=== PATIENT | female | born 1965 | race Caucasian/White ===

== ENCOUNTER → 2019-11-13 10:09 | Outpatient (CLI) | payer BC, SELFPAY ==
[2019-11-13 11:24] LABS: Basophils # 0.1 K/mm3 (0-0.2); Basophils % 0.6 % (0.1-2.0); Eosinophils # 0.2 K/mm3 (0.0-0.4); Eosinophils % 2.7 % (0.1-12.0); Hematocrit 36.9 % (37.0-47.0); Hemoglobin 12.7 g/dL (12.2-16.2); Lymphocytes # 1.9 K/mm3 (0.7-4.5); Lymphocytes % 24.1 % (10-50); Mean Corpuscular HGB Conc 34.6 g/dL (31.8-35.4); Mean Corpuscular Hemoglobin 30.3 pg (27.0-31.2); Mean Corpuscular Volume 87.6 fl (81-99); Mean Platelet Volume 8.3 fl (7.4-10.4); Monocytes # 0.5 K/mm3 (0.1-1.0); Monocytes % 6.2 % (1.7-9.3); Neutrophils # 5.3 K/mm3 (1.8-7.8); Neutrophils % 66.4 % (37.0-80.0); Platelet Count 221 K/mm3 (142-424); Red Blood Count 4.21 M/mm3 (4.20-5.40); Red Cell Distribution Width 12.9 % (11.5-17.5); White Blood Count 7.9 K/mm3 (4.8-10.8)
[2019-11-13 12:04] LABS: Strep Scrn Group A (Rapid) Negative (Negative)
[2019-11-14 13:28] LABS: Covid-19 Nasal PCR Sendout Lex Not Detected
== END ==
PROVIDERS: PCP Physician Assistant; Visit Provider Physician Assistant
DX: Z03.818 Encounter for observation for suspected exposure to other biological agents ruled out (principal)
CPT/HCPCS: 85025; 87430; U0004

== ENCOUNTER 2020-04-26 16:03 | Emergency (ER) | payer BC, SELFPAY ==
[2020-04-26 16:45] VITALS: BP 135/79; PULSE 69; RESP 18; TEMP 36.9; O2SAT 99; BMI 34.1
--- NOTE | 2020-04-26 17:20 | HMH.EDUTC ---
[facility] [place] Disposition Clinical Impression: Exposure to COVID-19 virus Disposition: Home, Self-Care Condition on Discharge: Good Instructions: DI for COVID-19 (Suspected or Confirmed ), COVID-19: Testing and Tracing, Preventing the Spread of Coronavirus Discharge Instructions Additional Instructions: *Monitor Temp, Over the counter Motrin or Tylenol as directed/as needed Tylenol every 4 hours and Motrin every 6 hours (as long as your family doctor has told you that you can take it) for fever or pain. and straight to ER if unable to lower temp less than 101.0 after medication given Follow up IMMEDIATELY for new or worsening symptoms or no Noticeable improvement over the next 48-72 hours. 911 for difficulty breathing or swallowing You were tested for today for COVID19 your test result should be back in the next 24-48 hours, you may call to the [facility] to see if your test results are back in the next 48 hours [phone] [facility] hours are 9am-9pm You was given a handout with instructions for Self Quarantine and Self isolation for while you wait on test results and what to do if they are positive If you are positive the Health Dept will be contacting you also Referrals: Alivia Chairez MD [Primary Care Provider] - As needed Forms: Work/School Release Time of Disposition: 17:21 Medical Decision Making - Alex Inquiry Pt receiving controlled substance: No Alex was queried for this patient: No Vital Signs: 04/26/20 16:45 Temperature 98.4 F Temperature Source Oral Pulse Rate [Right Brachial] 69 Respiratory Rate 18 Blood Pressure [Right Arm] 135/79 Blood Pressure Mean [Right Arm] 97 Blood Pressure Source [Right Arm] Automatic Cuff Blood Pressure Position [Right Arm] Sitting 02 Sat by Pulse Oximetry 99 Oxygen Delivery Method Room Air Orders (Tests/Meds): ORDERS Category Date Time Status Covid-19 Nasal PCR ([facility]) Routine Lab 04/26/20 16:39 Ordered [facility] [place] HPI - General Stated complaint: covid test Time Seen by Provider: 04/26/20 17:20 Mode of Arrival: Ambulatory Source of Information: Patient Limitations: No Limitations Description of Symptoms (Recalled from Triage Doc. by RN): COVID TEST D/T EXPOSURE; DENIES SYMPTOMS HEENT Symptoms (Recalled from RN notes): No Resp Symptoms (Recalled from RN notes): No Skin Symptoms (Recalled from RN notes): No MS Symptoms (Recalled from RN notes): No Functional Status (Recalled from RN notes): WNL - History of Present Illness Provider Complaint: Patient states that she was recently around someone that tested positive for COVID states that she is not having any symptoms but work wanted her to get tested - Related Data Home Medications Medication Instructions Recorded Confirmed Levothyroxine Sodium [Synthroid 112 mcg PO DAILY 09/01/18 09/01/18 112mcg (0.112mg) tablet] Metoprolol Tartrate [Lopressor 25 mg PO DAILY 09/01/18 09/01/18 25mg tablet] Oxybutynin Chloride [Oxybutynin 10 mg PO DAILY 09/01/18 09/01/18 Chloride ER] diphenhydrAMINE HCL [Allergy 25 mg PO DAILY 09/01/18 09/01/18 Medicine] estradioL [Estradiol] 1 mg PO DAILY 09/01/18 09/01/18 hydroCHLOROthiazide [HCTZ 25mg 12.5 mg PO DAILY 09/01/18 09/01/18 tab] Allergies Allergy/AdvReac Type Severity Reaction Status Date / Time Sulfa (Sulfonamide Allergy Hives Verified 09/01/18 07:09 Antibiotics) - Worker's Comp Is this a Worker's Comp case?: No [facility] History - Hepatitis A Screen Drug use history?: No High risk sexual behaviors?: No History of sexually transmitted infection?: No Currently employed?: No Childcare worker?: No Do you have indoor plumbing?: Yes Do you have electricity?: Yes Attestation statement:: This patient has been screened for Hepatitis A risk factors. I have reviewed the patient's past medical history: Yes Medical History: Reports:: Hypertension, Palpitations Denies:: Diabetes Mellitus Type 1, Diabetes Mellitus Type 2, Internal Pacemaker, Lung Dise
[2020-04-26 17:39] VITALS: BP 135/79; PULSE 69; RESP 18; TEMP 36.9; O2SAT 99
--- NOTE | 2020-04-27 09:57 | PC.NURSE ---
PATIENT NOTIFIED OF POSITIVE COVID RESULTS
== END 2020-04-26 17:40 | disposition home or self-care (01) ==
PROVIDERS: Emergency Provider Emergency Medicine; PCP Family Medicine
DX: U07.1 COVID-19 (principal); I10 Essential (primary) hypertension; R00.2 Palpitations; Z88.2 Allergy status to sulfonamides; Z79.899 Other long term (current) drug therapy
CPT/HCPCS: 99202; G0463; U0003

== ENCOUNTER → 2020-06-14 10:17 | Outpatient (CLI) | payer BC, SELFPAY | PROVIDERS: PCP Family Medicine; Visit Provider Family Medicine | DX: R00.1 Bradycardia, unspecified (principal) | CPT/HCPCS: 93225; 93226 ==

== ENCOUNTER → 2020-11-28 14:29 | Outpatient (CLI) | payer BC, SELFPAY ==
--- NOTE | 2020-11-28 14:35 | MM_ITS ---
PROCEDURE: MM DIG MAMM DX UNILAT LT CAD Digital Breast Tomosynthesis Included CLINICAL INDICATION: ABN MAMM Follow-up abnormal mammogram COMPARISON: MG MAMMO SCREENING DIGITAL TOMOSYNTHESIS BILATERAL W CAD from 07/01/2018 MG MAMMO SCREENING DIGITAL TOMOSYNTHESIS BILATERAL W CAD from 11/14/2020 US US BREAST LT COMPLETE from 11/28/2020 TECHNIQUE: Standard CC and MLO images and 3D Tomosynthesis was obtained. R2 CAD reviewed. FINDINGS: Outside mammograms dating 11/14/2020 and 07/01/2018 are reviewed in conjunction with today's exam. There is average fibroglandular tissue. The outside study mentions asymmetry in the medial aspect of the left breast. Focal spot compression view shows this area to appear to compress out as fibroglandular tissue with no suspicious mass apparent. Rolled views are also performed showing no obvious persistent lesion. Left breast ultrasound: At 10 o'clock there is a complicated cyst or duct at 9 by 8 mm which may account for some of the asymmetry in the medial aspect of the left breast. IMPRESSION: Probably benign findings. Recommend six-month mammographic and sonographic follow-up BI-RAD Category: 3 Probably Benign Finding Short Term Follow-Up FOLLOW-UP: 6M 6 Month Follow-up (A letter has been sent to the patient regarding results of the study.) Dictated by: Justus Arguelles MD 12/09/2020 12:18 Justus Arguelles MD in [place] 12/09/2020 12:18
== END ==
PROVIDERS: PCP Family Medicine; Visit Provider Family Medicine
DX: R92.8 Other abnormal and inconclusive findings on diagnostic imaging of breast (principal)
CPT/HCPCS: 76641; 77061; 77065; G0279

== ENCOUNTER → 2021-06-01 14:34 | Outpatient (CLI) | payer OTHER, SELFPAY ==
--- NOTE | 2021-06-01 14:41 | MM_ITS ---
PROCEDURE INFORMATION: Exam: US Left Breast, Complete MG Left Diagnostic Breast Tomosynthesis Exam date and time: 06/01/2021 2:41 PM Age: 55 years old Clinical indication: Short-term radiographic follow-up for probable cystic change TECHNIQUE: Imaging protocol: Complete ultrasound of all four quadrants of the Left breast and the retroareolar regions, including ultrasound of the axilla when performed. Left Diagnostic tomosynthesis and 2D mammography including computer-aided detection (CAD) when performed. Unilateral or bilateral exam. COMPARISON: 1. MG MM DIG MAMM DX UNILAT LT CAD 11/28/2020 3:06 PM 2. MG MAMMO SCREENING DIGITAL TOMOSYNTHESIS BILATERAL W CAD 11/14/2020 8:47 AM Ultrasound dated 11/28/2020 FINDINGS: MAMMOGRAPHY: The breast tissue is composed of scattered areas of fibroglandular density. There is no stellate mass, architectural distortion or suspicious microcalcifications in either breast to suggest malignancy. No skin thickening or axillary adenopathy. ULTRASOUND: Sonographic images of the left breast including the retroareolar region, all 4 quadrants and the axilla do not demonstrate any solid masses. A cluster of cysts with a combined dimension of 0.9 cm are noted in the left mid 10 o'clock axis. No architectural distortion or acoustical shadowing. No skin thickening or axillary adenopathy. IMPRESSION: No mammographic or sonographic evidence of malignancy. Annual bilateral mammographic screening is recommended in November 2021 unless otherwise clinically indicated. ASSESSMENT: BI-RADS Category 2: Benign
== END ==
PROVIDERS: PCP Family Medicine; Visit Provider Family Medicine
DX: R92.8 Other abnormal and inconclusive findings on diagnostic imaging of breast (principal)
CPT/HCPCS: 76641; 77061; 77065; G0279

== ENCOUNTER → 2021-12-27 10:32 | Outpatient (CLI) | payer OTHER, SELFPAY ==
--- NOTE | 2021-12-27 10:36 | MM_ITS ---
PROCEDURE INFORMATION: Exam: MG Bilateral Screening 3D Mammography Exam date and time: 12/27/2021 10:35 AM Age: 56 years old Clinical indication: Screening mammogram. TECHNIQUE: Imaging protocol: Bilateral Screening tomosynthesis and 2D mammography including computer-aided detection (CAD) when performed. COMPARISON: 1. MG MM DIG MAMM DX UNILAT LT CAD 06/01/2021 2:43 PM 2. MG MM DIG MAMM DX UNILAT LT CAD 11/28/2020 3:06 PM 3. MG MAMMO SCREENING DIGITAL TOMOSYNTHESIS BILATERAL W CAD 11/14/2020 8:47 AM FINDINGS: MAMMOGRAPHY: Breast composition: There are scattered areas of fibroglandular density. Mass: None. Architectural distortion: No new or suspicious architectural distortion. Calcifications: No new or suspicious calcifications are present Asymmetric density: No new or suspicious asymmetric density is present Skin thickening: None. Axillary adenopathy: None. IMPRESSION: No mammographic evidence of malignancy. Recommend annual screening mammography unless otherwise clinically indicated. ASSESSMENT: BI-RADS category 1: Negative
== END ==
PROVIDERS: PCP Family Medicine; Visit Provider Family Medicine
DX: Z12.31 Encounter for screening mammogram for malignant neoplasm of breast (principal)
CPT/HCPCS: 77063; 77067

== ENCOUNTER → 2023-04-16 08:07 | Outpatient (CLI) | payer OTHER, SELFPAY ==
--- NOTE | 2023-04-16 08:11 | MM_ITS ---
PROCEDURE INFORMATION: Exam: MG Bilateral Screening 3D Mammography Exam date and time: 04/16/2023 8:09 AM Age: 57 years old Clinical indication: Screening examination TECHNIQUE: Imaging protocol: Bilateral Screening tomosynthesis and 2D mammography including computer-aided detection (CAD) when performed. COMPARISON: 1. MG MM DIG SCREENING MAMM BI W/CAD 12/27/2021 10:35 AM 2. MG MM DIG MAMM DX UNILAT LT CAD 06/01/2021 2:43 PM FINDINGS: MAMMOGRAPHY: Breast composition: There are scattered areas of fibroglandular density. Mass: None. Architectural distortion: None. Calcifications: No suspicious calcifications. Asymmetric density: None. Skin thickening: None. Axillary adenopathy: None. IMPRESSION: No mammographic evidence of malignancy. Annual screening is recommended unless otherwise clinically indicated. ASSESSMENT: BI-RADS Category 1: Negative
== END ==
PROVIDERS: PCP Family Medicine; Visit Provider Family Medicine
DX: Z12.31 Encounter for screening mammogram for malignant neoplasm of breast (principal)
CPT/HCPCS: 77063; 77067

== ENCOUNTER 2024-08-08 14:25 | Emergency (ER) | payer BC, SELFPAY ==
--- NOTE | 2024-08-08 14:33 | ED_ITS ---
Discharge Plan Disposition Patient Disposition: Home, Self-Care Condition: Good Prescriptions Prescriptions: New cyclobenzaprine 10 mg tablet 10 mg PO BID PRN (Reason: muscle spasm) Qty: 20 0RF No Action methylprednisolone [Medrol (Deshawn)] 4 mg tablets,dose pack See Rx Instructions PO PER PKG DIR Qty: 21 0RF Rx Instructions: PO PER PKG DIR for 6 days benzonatate 100 mg capsule 100 mg PO TID PRN (Reason: cough) Qty: 30 0RF azithromycin 250 mg tablet See Rx Instructions PO .COMPLEX Qty: 6 0RF Rx Instructions: For 250 mg dose pack: take 500 mg today (day 1), then 250 mg for 4 days (days 2-5) PO guaifenesin [Mucinex] 1,200 mg tablet extended release 12hr 1,200 mg PO BID PRN (Reason: congestion) Qty: 10 0RF oxybutynin chloride 10 MG tablet extended release 24hr 10 mg PO DAILY hydrochlorothiazide 25 MG tablet 12.5 mg PO DAILY estradiol 0.5 MG tablet 1 mg PO DAILY levothyroxine 112 MCG tablet 112 mcg PO DAILY metoprolol tartrate 25 MG tablet 25 mg PO DAILY Referrals Follow up/Referrals: Alivia Chairez MD [Primary Care Provider] - See instructions Kunal Gaitan DO [Staff Physician] - See instructions Activity Restrictions/Add. Instructions Additional Instructions/Restrictions: The hospital will call you for the outpatient DVT study. If you continue to have worsening pain or other symptoms occur such as shortness of breath or chest pain please return to the ED immediately. Clinical Impressions Clinical Impression: Calf pain Instructions Patient Instructions: DI for Leg Pain Print Language Print Language: Prydeinig Discharge ED Provider: Lane Estevez General Adult HPI <Birdie Esqueda (ED), CONTROL SYSTEMS DEVELOPER - Last Filed: 08/08/24 16:44> General Chief complaint: Extremity Injury, Lower Stated complaint: AO 1130-R calf muscle injury Time Seen by Provider: 08/08/24 14:32 History of Present Illness HPI narrative: 58-year-old female presents to the ED today after she was walking and felt a pop in her right calf. Patient has been favoring her left leg for a month due to knee pain. Patient denies any recent travel, no reason that she has been sedentary, she is on hormone therapy. Patient denies any illnesses recently. No recent surgeries. Related Data Home Medications ?Medication ?Instructions ?Recorded ?Confirmed estradiol 0.5 mg tablet 1 mg PO DAILY hysterectomy 09/01/18 06/11/24 hydrochlorothiazide 25 mg tablet 12.5 mg PO DAILY bp 09/01/18 06/11/24 levothyroxine 112 mcg tablet 112 mcg PO DAILY hypothyroid 09/01/18 06/11/24 metoprolol tartrate 25 mg tablet 25 mg PO DAILY bp 09/01/18 06/11/24 oxybutynin chloride 10 mg 10 mg PO DAILY bladder 09/01/18 06/11/24 tablet,extended release 24 hr Previous Rx's ?Medication ?Instructions ?Recorded azithromycin 250 mg tablet See Rx Instructions PO .COMPLEX #6 06/11/24 tabs benzonatate 100 mg capsule 100 mg PO TID PRN cough #30 caps 06/11/24 guaifenesin 1,200 mg tablet, 1,200 mg PO BID PRN congestion #10 06/11/24 extended release 12 hr (Mucinex) tabs methylprednisolone 4 mg tablets in See Rx Instructions PO PER PKG DIR 06/11/24 a dose pack (Medrol (Deshawn)) #21 tabs cyclobenzaprine 10 mg tablet 10 mg PO BID PRN muscle spasm #20 08/08/24 tabs Allergies Allergy/AdvReac Type Severity Reaction Status Date / Time Sulfa (Sulfonamide Allergy Hives Verified 06/11/24 13:18 Antibiotics) [facility] <Birdie Esqueda (KAREN), CONTROL SYSTEMS DEVELOPER - Last Filed: 08/08/24 16:44> [facility] Disclaimer: The information contained in this section may have been updated after the patient was seen, as this information can be updated by other users. Medical History (Updated 08/08/24 @ 16:18 by Birdie Esqueda (ED), CONTROL SYSTEMS DEVELOPER) Bronchitis Hypothyroid Hypertension Social History (Updated 06/11/24 @ 13:56 by Gayle Caldera [employer]OL SYSTEMS DEVELOPER) Smoking Status: Never smoker alcohol intake: never current occupational status: other Travel in the last 8 weeks: None caffeine: No Have you lived/traveled outside [place] in past 30 days?: No Contact w/someone who lives/traveled outside US past 30 days?: No Exposure to someone with infectious disease in past 14 days?: No Do you have a fever (greater than 100.4 F or 38 C)?: No Have you tested positive for COVID-19: No Exposed to someone with COVID-19 in past 14 days?: No Do you have a sore throat?: No Do you have a cough?: No Do you have any weakness?: No Do you have any diarrhea?: No Are you experiencing any unusual bleeding?: No Do you have any muscle aches/pain?: No Do you have any abdominal pain?: No Are you experiencing loss of taste or smell?: No <Birdie Esqueda (ED), CONTROL SYSTEMS DEVELOPER - Last Filed: 08/08/24 16:44> ROS Obtained: Yes Systems reviewed as appropriate & no additional complaints except as documented Constitutional Constitutional: Reports as per HPI Physical Exam <Birdiehaylie Esqueda (ED), CONTROL SYSTEMS DEVELOPER - Last Filed: 08/08/24 16:44> General General appearance: alert Head Head exam: atraumatic and normocephalic Eye Eye exam: Present PERRL and EOMI ENT ENT exam: Present normal exam, normal oropharynx and mucous membranes moist Neck Neck exam: Present full ROM and trachea midline Respiratory Respiratory exam: Present normal lung sounds bilaterally Cardiovascular Cardiovascular exam: Present regular rate, normal rhythm, normal heart sounds, +S1 and +S2 Extremities Exam Extremities exam: Present tenderness and calf tenderness (right calf) Neurological Exam Neurological exam: Present alert and oriented X3 Skin Skin exam: Present warm and dry Medical Decision Making <Birdieviraj Esqueda (ED), CONTROL SYSTEMS DEVELOPER - Last Filed: 08/08/24 16:44> Medical Records Screening: Per USPSTF and CDC recommendations, given the prevalence of disease in our region, it is our hospital?s policy to screen for HIV and viral Hepatitis for all patients aged 18 and over and those with ongoing risk factors. Alex Inquiry Pt receiving controlled substance: No Alex was queried for this patient: No Vital Signs: 08/08/24 14:40 08/08/24 15:00 08/08/24 16:21 Temperature 98.5 F 98.5 F Temperature Source Oral Oral Pulse Rate 59 L 58 L Pulse Rate [Left Radial] 55 L Respiratory Rate 20 17 17 Blood Pressure 137/64 128/72 Blood Pressure [Right Arm] 134/55 L Blood Pressure Mean [Right Arm] 81 Blood Pressure Source Automatic Cuff 02 Sat by Pulse Oximetry 97 97 Oxygen Delivery Method Room Air Room Air Room Air 08/08/24 16:35 Temperature 98.2 F Temperature Source Pulse Rate 80 Pulse Rate [Left Radial] Respiratory Rate 20 Blood Pressure 139/70 Blood Pressure [Right Arm] Blood Pressure Mean [Right Arm] Blood Pressure Source 02 Sat by Pulse Oximetry Oxygen Delivery Method Room Air Lab Data Lab results reviewed: Yes I reviewed the patient's lab results. Lab Results 08/08/24 15:19: WBC 9.2, RBC 4.05 L, Hgb 12.3, Hct 36.3 L, MCV 89.6, MCH 30.4, MCHC 33.9, RDW 12.5, Plt Count 239, MPV 11.0 H, Neut % (Auto) 64.9, Lymph % (Auto) 27.0, [place] % (Auto) 6.2, Eos % (Auto) 1.3, Baso % (Auto) 0.3, Neut # (Auto) 6.0, Lymph # (Auto) 2.5, [place] # (Auto) 0.6, Eos # (Auto) 0.1, Baso # (Auto) 0.0, PT 9.6 L, INR 0.84 L, APTT 21.2 L, D-Dimer 0.74 H, Sodium 139, Potassium 3.8, Chloride 106, Carbon Dioxide 27, Anion Gap 9.8, BUN 15, Creatinine 0.80, Estimated Creat Clear 101, Estimated GFR 73, Est GFR ( Amer) 89, Glucose 91, Calcium 8.5, Magnesium 1.6, Total Bilirubin 0.4, AST 28, ALT 14, Alkaline Phosphatase 110, CK-MB (CK-2) 0.8, Total Protein 6.7, Albumin 3.7, Globulin 3.0, Albumin/Globulin Ratio 1.2 08/08/24 15:19 08/08/24 15:19 Orders (Tests/Meds): ED MEDICATIONS Discontinued Medications Generic Name Dose Route Start Last Admin Trade Name Freq PRN Reason Stop Dose Admin Orphenadrine Citrate 60 mg 08/08/24 14:50 08/08/24 15:02 Orphenadrine Citrate 60mg/2ml Vial IM 08/08/24 14:51 60 mg ONCE ONE Administration ORDERS Category Date Time Status POCUS Point of Care (ER Only) Stat Exams 08/08/24 14:36 Completed CBC [Complete Blood Count Auto Diff] Stat Lab 08/08/24 15:19 Completed Comprehensive Metabolic Panel Stat Lab 08/08/24 15:19 Completed Creatine Kinase MB Stat Lab 08/08/24 15:19 Completed D-Dimer Stat Lab 08/08/24 15:19 Completed Magnesium Stat Lab 08/08/24 15:19 Completed PT INR [Prothrombin Time INR] Stat Lab 08/08/24 15:19 Completed PTT [Activated Partial Thrombo Time] Stat Lab 08/08/24 15:19 Completed Medical Decision Narrative: Insert review patient is a 58-year-old female presenting to the emergency department for evaluation of right calf pain. She was walking and heard a pop in her right calf and started having pain. Patient is hemodynamically stable and nontoxic-appearing upon arrival, afebrile. Differential diagnosis includes muscle, DVT. Workup will be conducted with hematologic labs, specific imaging. Initial inventions include pain medication and POCUS by Dr. Coronel. Initial workup reviewed by me is unremarkable and nonactionable. Bedside ultrasound by Dr. Coronel is negative for DVT. We will get a formal DVT study outpatient. The hospital will call patient for an appointment. Patient is so low risk we are not doing anticoagulation. According to the age-adjusted D-dimer she ages out meaning that the DVT is very unlikely. Patient with improved pain after pain meds. Patient will follow-up with primary care provider outpatient with return precautions. <Rufino Coronel MD - Last Filed: 08/09/24 17:14> Vital Signs: 08/08/24 14:40 08/08/24 15:00 08/08/24 16:21 Temperature 98.5 F 98.5 F Temperature Source Oral Oral Pulse Rate 59 L 58 L Pulse Rate [Left Radial] 55 L Respiratory Rate 20 17 17 Blood Pressure 137/64 128/72 Blood Pressure [Right Arm] 134/55 L Blood Pressure Mean [Right Arm] 81 Blood Pressure Source Automatic Cuff 02 Sat by Pulse Oximetry 97 97 Oxygen Delivery Method Room Air Room Air Room Air 08/08/24 16:35 Temperature 98.2 F Temperature Source Pulse Rate 80 Pulse Rate [Left Radial] Respiratory Rate 20 Blood Pressure 139/70 Blood Pressure [Right Arm] Blood Pressure Mean [Right Arm] Blood Pressure Source 02 Sat by Pulse Oximetry Oxygen Delivery Method Room Air Lab Data Lab Results 08/08/24 15:19: WBC 9.2, RBC 4.05 L, Hgb 12.3, Hct 36.3 L, MCV 89.6, MCH 30.4, MCHC 33.9, RDW 12.5, Plt Count 239, MPV 11.0 H, Neut % (Auto) 64.9, Lymph % (Auto) 27.0, [place] % (Auto) 6.2, Eos % (Auto) 1.3, Baso % (Auto) 0.3, Neut # (Auto) 6.0, Lymph # (Auto) 2.5, [place] # (Auto) 0.6, Eos # (Auto) 0.1, Baso # (Auto) 0.0, PT 9.6 L, INR 0.84 L, APTT 21.2 L, D-Dimer 0.74 H, Sodium 139, Potassium 3.8, Chloride 106, Carbon Dioxide 27, Anion Gap 9.8, BUN 15, Creatinine 0.80, Estimated Creat Clear 101, Estimated GFR 73, Est GFR ( Amer) 89, Glucose 91, Calcium 8.5, Magnesium 1.6, Total Bilirubin 0.4, AST 28, ALT 14, Alkaline Phosphatase 110, CK-MB (CK-2) 0.8, Total Protein 6.7, Albumin 3.7, Globulin 3.0, Albumin/Globulin Ratio 1.2 Orders (Tests/Meds): ED MEDICATIONS Discontinued Medications Generic Name Dose Route Start Last Admin Trade Name Freq PRN Reason Stop Dose Admin Orphenadrine Citrate 60 mg 08/08/24 14:50 08/08/24 15:02 Orphenadrine Citrate 60mg/2ml Vial IM 08/08/24 14:51 60 mg ONCE ONE Administration ORDERS Category Date Time Status POCUS Point of Care (ER Only) Stat Exams 08/08/24 14:36 Completed CBC [Complete Blood Count Auto Diff] Stat Lab 08/08/24 15:19 Completed Comprehensive Metabolic Panel Stat Lab 08/08/24 15:19 Completed Creatine Kinase MB Stat Lab 08/08/24 15:19 Completed D-Dimer Stat Lab 08/08/24 15:19 Completed Magnesium Stat Lab 08/08/24 15:19 Completed PT INR [Prothrombin Time INR] Stat Lab 08/08/24 15:19 Completed PTT [Activated Partial Thrombo Time] Stat Lab 08/08/24 15:19 Completed Medical Decision Narrative: Insert review patient is a 58-year-old female presenting to the emergency department for evaluation of right calf pain. She was walking and heard a pop in her right calf and started having pain. Patient is hemodynamically stable and nontoxic-appearing upon arrival, afebrile. Differential diagnosis includes muscle, DVT. Workup will be conducted with hematologic labs, specific imaging. Initial inventions include pain medication and POCUS by Dr. Coronel. Initial workup reviewed by me is unremarkable and nonactionable. Bedside ultrasound by Dr. Coronel is negative for DVT. We will get a formal DVT study outpatient. The hospital will call patient for an appointment. Patient is so low risk we are not doing anticoagulation. According to the age-adjusted D-dimer she ages out meaning that the DVT is very unlikely. Patient with improved pain after pain meds. Patient will follow-up with primary care provider outpatient with return precautions. I was consulted by the JONAS, and we discussed the complexity of the problems being addressed. I approved the treatment and management plan for this patient's care in the emergency department, thus performing a substantive portion of the medical decision making. Patient likely has musculoskeletal calf pain. Clinic ultrasound performed by Dr. Coronel no evidence of DVT. Ultimately feel that patient's is very low risk for DVT and anticoagulation as a bridge we deferred at this time. Patient will be referred for formal outpatient DVT duplex. MD Rufino Allen MD <Lane Estevez MD - Last Filed: 08/08/24 17:05> Vital Signs: 08/08/24 14:40 08/08/24 15:00 08/08/24 16:21 Temperature 98.5 F 98.5 F Temperature Source Oral Oral Pulse Rate 59 L 58 L Pulse Rate [Left Radial] 55 L Respiratory Rate 20 17 17 Blood Pressure 137/64 128/72 Blood Pressure [Right Arm] 134/55 L Blood Pressure Mean [Right Arm] 81 Blood Pressure Source Automatic Cuff 02 Sat by Pulse Oximetry 97 97 Oxygen Delivery Method Room Air Room Air Room Air 08/08/24 16:35 Temperature 98.2 F Temperature Source Pulse Rate 80 Pulse Rate [Left Radial] Respiratory Rate 20 Blood Pressure 139/70 Blood Pressure [Right Arm] Blood Pressure Mean [Right Arm] Blood Pressure Source 02 Sat by Pulse Oximetry Oxygen Delivery Method Room Air Lab Data Lab Results 08/08/24 15:19: WBC 9.2, RBC 4.05 L, Hgb 12.3, Hct 36.3 L, MCV 89.6, MCH 30.4, MCHC 33.9, RDW 12.5, Plt Count 239, MPV 11.0 H, Neut % (Auto) 64.9, Lymph % (Auto) 27.0, [place] % (Auto) 6.2, Eos % (Auto) 1.3, Baso % (Auto) 0.3, Neut # (Auto) 6.0, Lymph # (Auto) 2.5, [place] # (Auto) 0.6, Eos # (Auto) 0.1, Baso # (Auto) 0.0, PT 9.6 L, INR 0.84 L, APTT 21.2 L, D-Dimer 0.74 H, Sodium 139, Potassium 3.8, Chloride 106, Carbon Dioxide 27, Anion Gap 9.8, BUN 15, Creatinine 0.80, Estimated Creat Clear 101, Estimated GFR 73, Est GFR ( Amer) 89, Glucose 91, Calcium 8.5, Magnesium 1.6, Total Bilirubin 0.4, AST 28, ALT 14, Alkaline Phosphatase 110, CK-MB (CK-2) 0.8, Total Protein 6.7, Albumin 3.7, Globulin 3.0, Albumin/Globulin Ratio 1.2 Orders (Tests/Meds): ED MEDICATIONS Discontinued Medications Generic Name Dose Route Start Last Admin Trade Name Freq PRN Reason Stop Dose Admin Orphenadrine Citrate 60 mg 08/08/24 14:50 08/08/24 15:02 Orphenadrine Citrate 60mg/2ml Vial IM 08/08/24 14:51 60 mg ONCE ONE Administration ORDERS Category Date Time Status POCUS Point of Care (ER Only) Stat Exams 08/08/24 14:36 Completed CBC [Complete Blood Count Auto Diff] Stat Lab 08/08/24 15:19 Completed Comprehensive Metabolic Panel Stat Lab 08/08/24 15:19 Completed Creatine Kinase MB Stat Lab 08/08/24 15:19 Completed D-Dimer Stat Lab 08/08/24 15:19 Completed Magnesium Stat Lab 08/08/24 15:19 Completed PT INR [Prothrombin Time INR] Stat Lab 08/08/24 15:19 Completed PTT [Activated Partial Thrombo Time] Stat Lab 08/08/24 15:19 Completed Medical Decision Narrative: Insert review patient is a 58-year-old female presenting to the emergency department for evaluation of right calf pain. She was walking and heard a pop in her right calf and started having pain. Patient is hemodynamically stable and nontoxic-appearing upon arrival, afebrile. Differential diagnosis includes muscle, DVT. Workup will be conducted with hematologic labs, specific imaging. Initial inventions include pain medication and POCUS by Dr. Coronel. Initial workup reviewed by me is unremarkable and nonactionable. Bedside ultrasound by Dr. Coronel is negative for DVT. We will get a formal DVT study outpatient. The hospital will call patient for an appointment. Patient is so low risk we are not doing anticoagulation. According to the age-adjusted D-dimer she ages out meaning that the DVT is very unlikely. Patient with improved pain after pain meds. Patient will follow-up with primary care provider outpatient with return precautions. I was consulted by the JONAS, and we discussed the complexity of the problems being addressed. I approved the treatment and management plan for this patient's care in the emergency department, thus performing a substantive portion of the medical decision making. Patient likely has musculoskeletal calf pain. Clinic ultrasound performed by Dr. Coronel no evidence of DVT. Ultimately feel that patient's is very low risk for DVT and anticoagulation as a bridge we deferred at this time. Patient will be referred for formal outpatient DVT duplex. Lane Estevez MD Procedures <Rufino Coronel MD - Last Filed: 08/09/24 17:14> Limited Ultrasound Indication:: R. calf pain Interpretation:: Indication: Limited compression ultrasonography of the right lower extremity was performed to evaluate for non-compressibility of the deep veins in the patient. The ultrasound was performed with the following indications, as noted in the H&P: Right calf pain Identified structures: Right common femoral vein, femoral vein, popliteal vein were examined. Findings: Lower Extremity: Right CFV: Good compressibility Right FV: Good compressibility Right Popliteal vein: Good compressibility Impression: Normal DVT ultrasound Images were saved to permanent archive The study was technically adequate CPT: 96223-75-CR [id number]-SA 50654-19 (complete bilateral study) This study was performed by me, and I personally interpreted all images/videos. Based on my clinical judgement, these images were adequate/inadequate and did/did not necessitate further imaging. Critical Care <Birdie Esqueda (KAREN), CONTROL SYSTEMS DEVELOPER - Last Filed: 08/08/24 16:44> Critical Care Time Critical Care Time: No
[2024-08-08 14:40] VITALS: BP 134/55; PULSE 55; RESP 20; TEMP 36.9; O2SAT 97; BMI 33.1
[2024-08-08 15:00] VITALS: BP 137/64; PULSE 59; RESP 17; O2SAT 97
[2024-08-08] MEDS: ORPHENADRINE CITRATE 60MG/2ML VIAL 60 MG IM (15:02)
[2024-08-08 15:32] LABS: Basophils % 0.3 % (0.1-2.0); Eosinophils # 0.1 Kmm3 (0.0-0.4); Eosinophils % 1.3 % (0.1-12.0); Hematocrit 36.3 % (37.0-47.0); Hemoglobin 12.3 g/dL (12.2-16.2); Lymphocytes # 2.5 K/mm3 (0.7-4.5); Mean Corpuscular HGB Conc 33.9 g/dL (31.8-35.4); Mean Corpuscular Hemoglobin 30.4 pg (27.0-31.2); Mean Corpuscular Volume 89.6 fl (81-99); Monocytes # 0.6 K/mm3 (0.1-1.0); Monocytes % 6.2 % (1.7-9.3); Neutrophils % 64.9 % (37.0-80.0); Nucleated Red Blood Cells # 0 10^3/uL; Nucleated Red Blood Cells % 0 %; Platelet Count 239 K/mm3 (142-424); Red Blood Count 4.05 M/mm3 (4.20-5.40); Red Cell Distribution Width 12.5 % (11.5-17.5); Red Cell Distribution Width-SD 41.2 fL; White Blood Count 9.2 K/mm3 (4.8-10.8)
[2024-08-08 15:36] LABS: Albumin Level 3.7 g/dl (3.5-5.0); Chloride 106 mmol/L (98-107); Potassium 3.8 mmoL/L (3.5-5.1); Sodium 139 mmol/L (136-145)
[2024-08-08 15:39] LABS: Alanine Aminotransferase 14 U/L (12-78); Albumin/Globulin Ratio 1.2 (1.1-1.8); Alkaline Phosphatase 110 U/L (38-126); Anion Gap 9.8 mEq/L (5-15); Aspartate Amino Transferase 28 U/L (14-36); Bilirubin,Total 0.4 mg/dl (0.2-1.3); Blood Urea Nitrogen 15 mg/dl (7-17); Carbon Dioxide 27 mmol/L (22.0-30.0); Creatinine Clearance Estimated 101 mL/min (50-200); Estimated Glomerular Filt Rate 73 ml/min (>60); GFR (African American) 89 ML/MIN (>60); Total Protein,Serum 6.7 g/dl (6.3-8.2)
[2024-08-08 15:40] LABS: Calcium 8.5 mg/dl (8.4-10.2); Glucose 91 mg/dl (74-100); Magnesium 1.6 mg/dl (1.6-2.3)
[2024-08-08 15:48] LABS: Creatine Kinase MB 0.8 ng/ml (0.0-2.03)
[2024-08-08 15:55] LABS: Activated Partial Thrombo Time 21.2 seconds (22.8-30.6); D-Dimer 0.74 ug/mL (0.0-0.5); INR 0.84 (0.9-1.1); Prothrombin Time 9.6 seconds (10.1-12.5)
[2024-08-08 16:21] VITALS: BP 128/72; PULSE 58; RESP 17; TEMP 36.9; O2SAT 96
[2024-08-08 16:35] VITALS: BP 139/70; PULSE 80; RESP 20; TEMP 36.8; O2SAT 96
== END 2024-08-08 16:35 | disposition home or self-care (01) ==
PROVIDERS: Nurse Practitioner; Emergency Provider Emergency Medicine; PCP Family Medicine
DX: M79.661 Pain in right lower leg (principal)
CPT/HCPCS: 80053; 82553; 83735; 85025; 85378; 85610; 85730; 96372; 99284; J2360

== ENCOUNTER 2024-08-10 13:43 | Outpatient (CLI) | payer BC, SELFPAY ==
--- NOTE | 2024-08-10 | CA_ITS ---
FINAL REPORT TECHNIQUE: Multiple transverse and longitudinal images were performed of the right femoral-popliteal deep venous system with augmentation and compression maneuvers. CLINICAL HISTORY: Right calf pain. She was at work Saturday08/08/24 when she heard a pop in her right calf. States she was just walking, no trauma. She is having trouble walking since this incident. HTN, on HRT for many years. FINDINGS: Right lower extremity duplex ultrasound demonstrates normal flow in the deep venous system. There is no abnormal echogenicity to suggest thrombus. There is normal compression and augmentation. IMPRESSION: No evidence of right DVT. Reviewed, Interpreted and Dictated by Mary Salinas MD Transcribed by Blanca Ventura Authenticated and . [facility]
== END 2024-08-10 23:59 | disposition home or self-care (01) ==
LOC: RT 13:44
PROVIDERS: PCP Family Medicine; Visit Provider Nurse Practitioner
DX: M79.661 Pain in right lower leg (principal)
CPT/HCPCS: 93971

== ENCOUNTER 2024-08-17 08:08 | Outpatient (CLI) | payer BC, SELFPAY ==
--- NOTE | 2024-08-17 08:32 | MM_ITS ---
PROCEDURE INFORMATION: Exam: MG Bilateral Screening 3D Mammography Exam date and time: 08/17/2024 8:32 AM Age: 58 years old Clinical indication: Screening. No family history of breast cancer. TECHNIQUE: Imaging protocol: Bilateral Screening tomosynthesis and 2D mammography including computer-aided detection (CAD) when performed. COMPARISON: 1. MG MM DIG SCREENING MAMM BI W/CAD 04/16/2023 8:09 AM 2. MG MM DIG SCREENING MAMM BI W/CAD 12/27/2021 10:35 AM 3. MG MM DIG MAMM DX UNILAT LT CAD 06/01/2021 2:43 PM 4. MG MM DIG MAMM DX UNILAT LT CAD 11/28/2020 3:06 PM FINDINGS: MAMMOGRAPHY: Breast composition: There are scattered areas of fibroglandular density. Mass: None. Architectural distortion: None. Calcifications: No suspicious calcifications. Asymmetric density: No developing asymmetry. Skin thickening: None. Axillary adenopathy: None. IMPRESSION: No mammographic evidence of malignancy. Annual screening is recommended unless otherwise clinically indicated. ASSESSMENT: BI-RADS Category 1: Negative.
== END 2024-08-17 23:59 | disposition home or self-care (01) ==
LOC: RAD 08:08
PROVIDERS: PCP Family Medicine; Visit Provider Family Medicine
DX: Z12.31 Encounter for screening mammogram for malignant neoplasm of breast (principal)
CPT/HCPCS: 77063; 77067